=== PATIENT | male | born 1950 | race Caucasian/White ===

== ENCOUNTER 2017-02-15 11:01 | Inpatient (IN) | payer OTHER, MEDICARE ==
[~2017-02-15] VITALS: Ht 182.9 cm; Wt 88.5 kg
--- NOTE | ~2017-02-15 | EKG ---
[address] [place] [address] ELECTROCARDIOGRAM REPORT Name: TSERING GODDARD Anita Room #: 445-P ADM IN M.R.#: [id number] Admission: 02/15/17 Attend Phys: Jasen Wild MD Discharge: Date of : 52 Report #: [id number] THIS REPORT FOR: //name// [facility] ED Test Date: 2017-02-15 Test Time: 11:20:20 Pat Name: TSERING GODDARD Department: Room: [facility] Gender: M [employer] Tender: LETTY : 1950 Requested By: Candace Gimenez Order Number: [id number] MD: Walter Gomes Measurements Intervals [place] Rate: 76 P: 56 DC: 148 QRS: 41 QRSD: 108 T: 65 QT: 409 QTc: 460 Interpretive Statements Sinus rhythm RSR' in V1 or V2, right VCD No previous ECG available for comparison Electronically Signed On 02-16-2017 8:47:28 CDT by Walter Gomes [email or web address] <ELECTRONICALLY SIGNED> By: Walter Gomes MD, [facility] 02/16/17 0847 1120 1120 Walter Gomes MD, [facility] /EPI
--- NOTE | ~2017-02-15 | 2DMMODE ---
[facility] [address] [place] [address] 2 D/M-MODE ECHOCARDIOGRAM Name: TSERING GODDARD Room #: 445-P [facility] IN ..#: [id number] Admission: 02/15/17 Attend Phys: Jasen Wild MD Discharge: Date of : 52 Date of Service: 02/16/17 1442 Report #: [id number] THIS REPORT FOR: //name// APPROVED REPORT Study performed: 02/16/2017 12:04:45 EXAM: Comprehensive 2D, Doppler, and color-flow Echocardiogram Patient Location: Bedside Room #: [facility] Status: routine Other Information Study Quality: Adequate Indications CVA/TIA Hypertension/HDD HLP. Echo Enhancing Agent Indication: Rule out Shunt Agent(s) / Amount(s) Used: Agitated Saline 7 cc 2D Dimensions RVDd: 39.14 mm LVEF(%): 55.37 (>50%) IVSd: 9.61 (7-11mm) LVOT Diam: 23.70 (18-24mm) LVDd: 51.03 mm PWd: 10.30 (7-11mm) Ascending Ao: 34.20 (22-36mm) LVDs: 36.25 (25-40mm) Aortic Root: 34.22 mm IVC: 18.00 mm Craig's LVEF: 55.37 % Volumes Left Atrial Volume (Systole) Single Plane 4CH: 48.11 mL Single Plane 2CH: 48.25 mL LA ESV Index: 27.00 mL/m2 Aortic Valve AoV Peak Dario.: 1.16 m/s AO Peak Gr.: 5.41 mmHg LVOT Max P.99 mmHg LVOT Max V: 0.87 m/s RYLEE Vmax: 3.28 cm2 Mitral Valve [facility] [place] [address] 2 D/M-MODE ECHOCARDIOGRAM Name: TSERING GODDARD Room #: 445-P [facility] IN .R.#: [id number] Admission: 02/15/17 Attend Phys: Jasen Wild MD Discharge: Date of : 52 Date of Service: 02/16/17 1442 Report #: [id number] E/A Ratio: 0.7 MV Decel. Time: 267.96 ms MV E Max Dario.: 0.50 m/s MV A Dario.: 0.75 m/s MV PHT: 77.71 ms IVRT: 133.79 ms Pulmonary Valve PV Peak Dario.: 0.79 m/s PV Peak Gr.: 2.47 mmHg Pulmonary Vein P Vein S: 0.39 m/s P Vein A: 0.21 m/s P Vein D: 0.29 m/s P Vein A Dur.: 101.5 msec P Vein S/D Ratio: 1.34 Tricuspid Valve RAP Estimate: 5.00 mmHg Left Ventricle The left ventricle is normal size. There is normal LV segmental wall motion. There is normal left ventricular wall thickness. The left ventricular systolic function is normal. The left ventricular ejection fraction is within the normal range. LVEF is 55-60%. Grade I - abnormal relaxation pattern. Right Ventricle The right ventricle is normal size. The right ventricular systolic function is normal. Atria The left atrium size is normal. Interatrial septum is intact without evidence of ASD or PFO. The right atrium size is normal. Aortic Valve The aortic valve is calcified No aortic regurgitation is present. There is no aortic valvular stenosis. Mitral Valve The mitral valve is normal in structure. Trace mitral regurgitation. No evidence of mitral valve stenosis. Tricuspid Valve The tricuspid valve is normal in structure. Trace tricuspid regurgitation. Unable to assess PA pressure. Pulmonic Valve [facility] [address] [place] [address] 2 D/M-MODE ECHOCARDIOGRAM Name: TSERING GODDARD Room #: 445-P [facility]#: [id number] Admission: 02/15/17 Attend Phys: Jasen Wild MD Discharge: Date of : 52 Date of Service: 02/16/17 1442 Report #: [id number] The pulmonary valve is normal in structure. There is no pulmonic valvular regurgitation. Great Vessels The aortic root is normal in size. IVC is normal in size and collapses >50% with inspiration. Pericardium There is no pericardial effusion. <Conclusion> The left ventricular systolic function is normal. There is normal LV segmental wall motion. Grade I - abnormal relaxation pattern. The aortic valve is calcified, no insufficiency or stenosis. The mitral valve is normal in structure. No mitral regurgitation. Pulmonary artery pressure could not be reliably ascertained. Interatrial septum is intact without evidence of ASD or PFO. There is no pericardial effusion. <ELECTRONICALLY SIGNED> By: Walter Gomes MD, [facility]ACC 02/16/17 144 [id number] 144 Walter Gomes MD, FACC /INF
--- NOTE | ~2017-02-15 | HC ---
[facility] [place] [address] CONSULTATION Name: TSERING GODDARD Room #: 445-P [facility] IN ..#: [id number] Admission: 02/15/17 Attend Phys: Jasen Wild MD Discharge: Date of : 52 Report #: [id number] THIS REPORT FOR: //name// CC: Jasen Voss HISTORY OF PRESENT ILLNESS: The patient is a 67-year-old white male who has a prior history of a traumatic brain injury with the subdural hematoma 01/2016. He underwent some rehabilitation therapies, was able to be discharged back home, initially utilized a walker then advanced to the point where he was not utilizing any gait aids around the apartment, but did use a quad cane out in the community. His works during the day. He was doing quite well and then he started having the sudden onset of recurrent falls. He was noted to have multiple falls and have slower speech. He was admitted, noted to have an encephalopathy. He has right-sided weakness, rhabdomyolysis, acute renal insufficiency. He has been hydrated with improvement in his creatinine from 1.7 to 1.2. We are seeing him in rehabilitation medicine consultation. PAST MEDICAL HISTORY: Includes the prior traumatic brain injury from 2015, was noted to have had a closed skull fracture with hematoma. MEDICATIONS: Please see the full medication listing. ALLERGIES: No known drug allergies. HABITS: Noted to be a current every day smoker, 1-2 packs per day for 50 pack years. Alcohol: Past use, quit last January 2016. REVIEW OF SYSTEMS: Did not offer any current complaints of chest pain, shortness of breath or abdominal discomfort. PHYSICAL EXAMINATION: GENERAL: A 67-year-old white male lying in bed, was in no distress. NEUROLOGIC: He has some obvious dysarthria. He does follow basic 1 step commands, although there is latency to his responses. Appears to have a depressed right nasolabial fold. EXTREMITIES: He has right upper extremity weakness, a grade 3+/5, right lower extremity is a grade 4-. He appears to have some decreased coordination of that right upper extremity. Left upper and left lower extremity are more of a grade 4 to 4-/5. DTRs are grade trace to 1. He is min assist with sit to stand. He ambulated 150 feet mod assist with a front-wheeled walker, some ataxia. He was noted to have some mild to moderate deficits with cognition and safety per OT. MRI did show encephalomalacia, bilateral posterior frontoparietal regions, right frontal with evidence of old basal ganglia lacunar infarcts. ASSESSMENT: A 67-year-old white male with the following problem list: 1[place] [address] CONSULTATION Name: TSERING GODDARD Anita Room #: 445-P [facility] IN M.R.#: [id number] Admission: 02/15/17 Attend Phys: Jasen Wild MD Discharge: Date of : 52 Report #: [id number] 2. Right-sided weakness. 3. Multiple falls. 4. Rhabdomyolysis. 5. Acute renal insufficiency. 6. Prior traumatic brain injury with subdural hematoma 01/2016. PLAN: The patient to set on returning directly back home. I am uncertain if he has the safety and is at a functional level to do this as his works. He is hoping to go home with some home healthcare. May need to see if family can be there with him more initially. It is difficult to assess what his current function is versus his premorbid status. We will follow along with you regarding his rehabilitation therapy needs and be glad to assist as indicated. We may need to have the come in and assess how he is doing functionally. By: 1413 1449 Jignesh Hernandez MD /nt
[~2017-02-15 11:01] MED LIST: ATORVASTATIN CA40 MG PO; PRADAXA75 MG PO; TOPROL XL25 MG PO
[2017-02-15 11:02] VITALS: BP 85/57
[2017-02-15 11:48] LABS: HEMATOCRIT 35.7 % (42.0-52.0); HEMOGLOBIN 12.6 gm/dL (14.0-18.0); MCH 31.7 pg (26.0-34.0); MCHC 35.2 g/dL (28.0-37.0); PLATELET COUNT 141 thou/uL (150-400); RBC 3.96 mil/uL (4.50-6.00); RDW 13.5 % (10.5-14.5)
[2017-02-15 11:49] LABS: MANUAL DIFF YES
[2017-02-15 11:55] LABS: ANION GAP 9 mmol/L (7-16); BUN 38 mg/dL (7-18); CALCIUM 8.5 mg/dL (8.5-10.1); CHLORIDE 101 mmol/L (98-107); CO2 25 mmol/L (21-32); CREATININE 1.7 mg/dL (0.7-1.3); GLUCOSE 141 mg/dL (74-106); POTASSIUM 3.1 mmol/L (3.5-5.1); SODIUM 135 mmol/L (136-145)
[2017-02-15 11:58] LABS: PROTIME 10.6 Seconds (9.3-11.4)
[2017-02-15 12:12] LABS: ABSOLUTE NEUTROPHILS 6.3 thou/uL (1.4-8.2); TOTAL CELL COUNT 100
[2017-02-15 12:14] LABS: ALBUMIN 3.2 g/dL (3.4-5.0); ALKALINE PHOSPHATASE 116 U/L (46-116); SGOT 199 U/L (15-37); SGPT 65 U/L (30-65); TOTAL BILIRUBIN 1.2 mg/dL (<0.1-1.0); TOTAL PROTEIN 7.1 g/dL (6.4-8.2); TROPONIN-I < 0.04 ng/mL (<0.04-0.07)
[2017-02-15 12:59] LABS: URINE BILIRUBIN NEGATIVE (Negative); URINE BLOOD 1+ (Negative); URINE COLOR YELLOW; URINE GLUCOSE-RANDOM* NEGATIVE (Negative); URINE KETONES NEGATIVE (Negative); URINE NITRITE NEGATIVE (Negative); URINE PROTEIN (DIPSTICK) 1+ (Negative); URINE UROBILINOGEN 0.2 E.U./dl (0.2-1.0)
[2017-02-15 13:07] LABS: BACTERIA 1-9 Few /HPF (None Seen); SQUAMOUS None Seen /LPF (0-3); URINE RBC 0-2 Rare /HPF (0-2); URINE WBC 0-5 Rare /HPF (0-5)
[2017-02-15 13:08] LABS: CASTS None Seen /LPF (None Seen); CRYSTALS None Seen /LPF (None Seen)
[2017-02-15 13:44] VITALS: BP 120/62
[2017-02-15 13:57] VITALS: BP 136/67
[2017-02-15 14:25] VITALS: BP 118/69
[2017-02-15 16:43] LABS: CHOLESTEROL 153 mg/dL (<200); HDL CHOLESTEROL 37 mg/dL (>40); LDL CHOLESTEROL 92 mg/dL (<100); TC:HDL 4.1 Ratio (Not establshd); TRIGLYCERIDE 124 mg/dL (<150); VLDL 25 mg/dL (<40)
[2017-02-15 17:37] LABS: FOLIC ACID 17.3 ng/mL (8.6-58.9); TSH 1.423 uIU/mL (0.358-3.740)
[2017-02-15 18:03] LABS: MAGNESIUM 2.2 mg/dL (1.8-2.4)
[2017-02-15 20:01] VITALS: BP 120/55
[2017-02-16 00:52] LABS: HEMATOCRIT 31.1 % (42.0-52.0); MCH 32.1 pg (26.0-34.0); MCHC 35.4 g/dL (28.0-37.0); MCV 90.7 fL (80.0-100.0); RBC 3.43 mil/uL (4.50-6.00); RDW 13.6 % (10.5-14.5); WBC 5.4 thou/uL (4.0-11.0)
[2017-02-16 01:05] LABS: POTASSIUM 3.5 mmol/L (3.5-5.1)
[2017-02-16 03:07] LABS: FREE T4 1.32 ng/dL (0.82-1.77); PROLACTIN 19.1 ng/mL (4.0-15.2)
[2017-02-16 05:11] LABS: GLYCOHEMOGLOBIN (HGB A1C) 5.4 % (4.8-5.6)
[2017-02-16 05:58] VITALS: BP 127/68
[2017-02-16 08:45] VITALS: BP 133/71
[2017-02-16 12:01] LABS: CALCIUM 7.9 mg/dL (8.5-10.1); CREATININE 1.2 mg/dL (0.7-1.3); POTASSIUM 3.9 mmol/L (3.5-5.1)
[2017-02-16 16:04] VITALS: BP 151/74
[2017-02-16 19:48] VITALS: BP 134/67
[2017-02-17 05:03] VITALS: BP 142/63
[2017-02-17 06:27] LABS: HEMATOCRIT 29.6 % (42.0-52.0); HEMOGLOBIN 10.2 gm/dL (14.0-18.0); MCH 31.4 pg (26.0-34.0); MCHC 34.3 g/dL (28.0-37.0); MCV 91.7 fL (80.0-100.0); RBC 3.23 mil/uL (4.50-6.00); RDW 13.2 % (10.5-14.5); WBC 4.9 thou/uL (4.0-11.0)
[2017-02-17 06:52] LABS: CALCIUM 7.8 mg/dL (8.5-10.1); MAGNESIUM 1.7 mg/dL (1.8-2.4); POTASSIUM 3.5 mmol/L (3.5-5.1)
[2017-02-17 08:01] VITALS: BP 139/73
[2017-02-17] MEDS ORDERED: NICOTINE TRANSD21 M1 TRANSDERM (12:55)
[2017-02-17] MEDS ORDERED: ASPIR 8181 MG PO (12:55)
[2017-02-17] MEDS ORDERED: HYDROCODONE-AP1 EAC6 PO (12:56)
[2017-02-17 14:07] VITALS: BP 139/73
[2017-02-18 12:11] LABS: ALPHA TOCOPHEROL 8.1 mg/L (5.3-17.5)
== END 2017-02-17 15:03 | DRG 682 ==
LOC: ER 11:01 → EROBS 13:29 → 4S 13:29
PROVIDERS: Hospitalist; Nurse Practitioner Acute Care; Physician Assistant; Psychiatry & Neurology Neurology
DX: N17.0 Acute kidney failure with tubular necrosis (principal); G93.40 Encephalopathy, unspecified; M62.82 Rhabdomyolysis; N39.0 Urinary tract infection, site not specified; R47.01 Aphasia; I10 Essential (primary) hypertension; E78.5 Hyperlipidemia, unspecified; E87.6 Hypokalemia; R29.6 Repeated falls; F17.210 Nicotine dependence, cigarettes, uncomplicated; Z87.820 Personal history of traumatic brain injury; Z87.81 Personal history of (healed) traumatic fracture; Z79.899 Other long term (current) drug therapy
CPT/HCPCS: 10100

== ENCOUNTER 2017-02-17 10:52 | Inpatient (IN) | payer OTHER, MEDICARE ==
[~2017-02-17] VITALS: Ht 182.9 cm; Wt 82.1 kg
--- NOTE | ~2017-02-17 | PLAN ---
[facility] [place] [place] [address] REHAB UNIT PLAN OF CARE Name: TSERING GODDARD Room #: 504-2 ADM IN M.R.#: [id number] Admission: 02/17/17 Attend Phys: Jignesh Hernandez MD Discharge: Date of : 52 Report #: [id number] THIS REPORT FOR: //name// CC: Jignesh Voss DATE OF SERVICE: 02/19/2017 The patient is seen back today in followup. He is in no distress. Last recorded temperature 98.7, pulse 93, respirations 20, blood pressure 96/63. The patient is alert. No focal calf swelling. Transfers are max assist. Gait is max assist 10 feet in the parallel bars. He is max assist x 2 for stairs. In occupational therapy, upper body dressing is mod assist with lower extremity dressing dependent. In speech therapy, he has functional comprehension. ASSESSMENT: 1. Encephalopathy. 2. Late effect cerebrovascular accident. 3. Multiple prior strokes. 4. Multiple falls. 5. Rhabdomyolysis. 6. Tobaccoism. 7. Acute renal insufficiency with improvement. 8. Prior traumatic brain injury with subdural hematomas on 01/31/2017. PLAN: The overall plan of care is based on the preadmission screen, post-admission physician evaluation and information garnered from therapy assessments. 1. Estimated length of stay is probably at least 2 weeks and likely longer as he is quite low level. 2. Medical prognosis is reasonably good. 3. Anticipated interventions include the interdisciplinary acute inpatient rehabilitation program with PT, OT. Speech therapy is currently involved, although we may be able to taper that. Rehab nursing is assisting regarding medication management, skin care prophylaxis, bowel and bladder issues and nursing education. The lead consultant physicians are continuing to follow. 4. Anticipated functional outcomes would be for the patient to become modified independent with mobility, transfers, gait and ADLs at the walker level. 5. Discharge destination is back home with his . 6. Expected therapy by discipline includes PT and OT 1-1/2 hours per day each five days a week throughout the duration of the acute inpatient rehabilitation stay. He is currently getting some speech therapy, but I would anticipate that that would taper. The main issue is that he will receive 3 hours of therapy, [address] [address] REHAB UNIT PLAN OF CARE Name: TSERING GODDARD Room #: 504-2 [facility] IN [facility]#: [id number] Admission: 02/17/17 Attend Phys: Jignesh Hernandez MD Discharge: Date of : 52 Report #: [id number] PT, OT and speech per day, 5 days per week throughout the duration of the acute inpatient rehabilitation stay. <ELECTRONICALLY SIGNED> By: Jignesh Hernandez MD 02/25/17 1350 0952 1017 Jignesh Hernandez MD /nt
--- NOTE | ~2017-02-17 | H ---
[facility] [place] [address] HISTORY AND PHYSICAL Name: TSERING GODDARD Room #: 504-2 ADM IN M.R.#: [id number] Admission: 02/17/17 Attend Phys: Jignesh Hernandez MD Discharge: Date of : 52 Report #: [id number] THIS REPORT FOR: //name// CC: Jignesh Voss DATE OF SERVICE: 02/17/2017 HISTORY OF PRESENT ILLNESS: The patient is a 67-year-old white male who has a history dating back to a traumatic brain injury with a subdural hematoma 01/2016. He underwent some rehabilitation therapies, was able to be discharged back home initially utilizing a walker and then advancing to the point where he was not utilizing any gait aids around the apartment, but did use the quad cane out in the community. His works during the day. He was doing quite well and then he started having the sudden onset of recurrent falls. He was noted to have multiple falls and had slower speech. He is admitted, noted to have encephalopathy with right-sided weakness, rhabdomyolysis, acute renal insufficiency. He was hydrated with improvement in his creatinine from 1.7 to 1.2. He was noted to have significant functional deficits with a decline from his premorbid level and has been admitted for an acute in-hospital inpatient rehabilitation stay. PAST MEDICAL HISTORY: Includes the prior traumatic brain injury from 2015. He was noted to have a close skull fracture with hematoma. MEDICATIONS: Please see the full medication listing. ALLERGIES: No known drug allergies. HABITS: Noted to be a current every day smoker, 1-2 packs per day for 50 years. Alcohol past usage, quit last January 2016. REVIEW OF SYSTEMS: No current complaints of chest pain, shortness of breath or abdominal discomfort. PHYSICAL EXAMINATION: GENERAL: A 67-year-old white male, in no obvious distress. VITAL SIGNS: Last recorded temperature 98.6, pulse 54, respirations 18, blood pressure 127/92. He does have obvious dysarthria. He is able to follow basic 1 step commands with some latency to his responses. He has a depressed right nasolabial fold. CHEST: Sounded clear. CARDIOVASCULAR: Regular rate and rhythm. ABDOMEN: Bowel sounds positive, nontender. GENITOURINARY AND RECTAL: Deferred. EXTREMITIES: He has the right upper extremity weakness grade 3+/5, right lower [facility] [address] [place] [address] HISTORY AND PHYSICAL Name: TSERING GODDARD Room #: 504-2 ADM IN [facility]#: [id number] Admission: 02/17/17 Attend Phys: Jignesh Hernandez MD Discharge: Date of : 52 Report #: [id number] extremity is 4-/5. He has decreased coordination of the right upper extremity. Left upper and left lower extremity are grade 4 to 4-. DTRs are trace to 1. He does demonstrate ataxia when getting up. He has min assist for transfers, gait is actually mod assist. Speech therapy is noted mild to moderate cognitive deficits with concern regarding safety and judgment. ASSESSMENT: 1. Encephalopathy. 2. Right-sided weakness. 3. Multiple falls. 4. Rhabdomyolysis. 5. Acute renal insufficiency with improvement. Last creatinine was down to 1.0 from a high of 1.7. 6. Prior traumatic brain injury with subdural hematoma in 01/2016. PLAN: The patient is admitted for acute in-hospital inpatient rehabilitation. From a post-admission physician evaluation perspective, there are no relevant changes since the preadmission screening. Please see the above review of prior and current medical and functional conditions and comorbidities. Please see the patient's prior and current functional status. As far as risk of complications, he does have the above noted comorbidities. Initial plan of care involves the interdisciplinary acute inpatient rehabilitation program with the goal of maximizing the patient's functional independence as well as his overall mobility, ADLs and cognition and safety, so that he can return back to the home setting. Prognosis is reasonably good with estimated length of stay probably at least 10 days to 2 weeks. Potential barriers would include his multiple medical comorbidities and decreased functional status. The patient meets diagnostic criteria for an acute in-hospital inpatient rehabilitation stay. He meets medical necessity criteria. He does have the tolerance for an acute inpatient rehabilitation stay and has appropriate discharge goals back to the home setting. <ELECTRONICALLY SIGNED> By: Jignesh Hernandez MD 02/25/17 1350 1616 1645 Jignesh Hernandez MD /nt
--- NOTE | ~2017-02-17 | HC ---
[facility] [address] CONSULTATION Name: TSERING GODDARD Room #: 504-2 ADM IN M.R.#: [id number] Admission: 02/17/17 Attend Phys: Jignesh Hernandez MD Discharge: Date of : 52 Report #: [id number] THIS REPORT FOR: //name// CC: Jignesh Voss DATE OF SERVICE: 02/21/2017 NEUROBEHAVIORAL STATUS EXAM ATTENDING PHYSICIAN: Jignesh Hernandez M.D. PREKINDERGARTEN TEACHER: Den Rangel, PhD CLINICAL PRESENTATION: The patient is a 67-year-old male admitted to the [facility] Unit for comprehensive inpatient rehabilitation program to improve functional mobility, activities of daily living and self-care and mental status secondary to deficits from encephalopathy. His admitting assessment includes right-sided weakness, multiple falls, rhabdomyolysis, acute renal insufficiency and a prior traumatic brain injury with subdural hematoma in January 2016. The patient is reported to have been at home with his prior to this most recent medical event. He was managing fairly well until a sudden onset of recurrent falls. The patient had a MRI of the head on admission. Extensive chronic changes were identified that include prominent regions of encephalomalacia in the posterior frontoparietal regions bilaterally and in the right frontal lobe, most compatible with chronic remote ischemic infarction, bilateral chronic remote basal ganglia lacunar infarcts and smaller focus of encephalomalacia in the left posterior medial occipital lobe. A complete description of his medical condition and history along with medications can be found in his medical record. Neuropsychological consultation was requested to provide assistance in the assessment of cognitive and emotional status and to provide recommendations and services. As indicated, he was living with his in their home prior to this admission. The patient has 2 stepchildren that are living. One stepchild from brain cancer about 2 years ago. This is his second marriage. The patient is a high school graduate. 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 It should be noted that alcohol was described as involved in the fall in January 2016. TECHNIQUES UTILIZED: Clinical interview, review of medical records, staff consultation and behavioral observation, mini mental status exam 2 standard version, calibrated ideational fluency assessment (letter and category fluency), [address] [address] CONSULTATION Name: TSERING GODDARD Room #: 504-2 [facility] IN ..#: [id number] Admission: 02/17/17 Attend Phys: Jignesh Hernandez MD Discharge: Date of : 52 Report #: [id number] and brief abstract reasoning test. EXAMINATION FINDINGS: The patient was alert and cooperative with the assessment. He accurately described the events leading to this most recent admission. The patient was tangential and verbose during the assessment. He described a history of alcohol abuse. However, he does not report current consumption of alcohol. It should be also noted that he continues to smoke one pack per day inspite of his cerebrovascular disease. The patient appears to dismiss recommendations to discontinue tobacco. He does not describe auditory or visual hallucinations. There is no evidence of aphasia. There is no evidence of thought disorder. He denies subjective anxiety or depression. The patient has decreased insight into cognitive functioning, although he does recognize balance is his primary concern. During the assessment, he presents with upper right hemiballistic movement of the right arm. His right arm is described as nonfunctional. His performance on the mini mental status exam 2 brief version is within normal limits with a raw score of 15 of 16. However, deficits are suggested in his performance on the MMSE 2 standard version with a raw score 25 of 30 and T score of 41. The patient was 2/5 for serial 7's. He was unable to copy a simple geometric design because of the hemiballistic movement of the right arm. His performance in letter fluency was extremely low with a raw score of 11, T score of 26 and percentile rank of 1. Category fluency was extremely low with a raw score of 24, T score of 24 and percentile rank of less than 1. Overall, total fluency was extremely low with a T score of 27 and percentile rank of 1. Deficits in verbal fluency are often seen with executive dysfunction. Diminished thought organization is likely to impact planning, problem solving as well as contribute to intermittent impulsivity. Abstract verbal reasoning was within normal limits with a raw score of 8/8. DIAGNOSTIC IMPRESSION: Major neurocognitive disorder (dementia), due to vascular disease and residual deficits from traumatic brain injury, with decreased insight, extent to be determined, likely in the moderate range. RECOMMENDATIONS: The patient is presenting with deficits that will require 24-hour care to the extent of improved structure and supervision in order to maintain safety. Decreased insight into areas of deficit places him at increased safety risk. He will need assistance in the management of his medication and in the ability to follow directions and instruction to maintain a safe independent lifestyle. [facility] [address] [place] [address] CONSULTATION Name: TSERING GODDARD Room #: 504-2 ADM IN M.R.#: [id number] Admission: 02/17/17 Attend Phys: Jignesh Hernandez MD Discharge: Date of : 51 Report #: [id number] He does not present with depression or anxiety. Verbally mediated functioning is well maintained. This type of presentation suggests a subcortical neurodegenerative disorder that is likely related to vascular disease. Counseling is likely to be a benefit for the patient and his to the extent that she receive adequate education in regard to areas of deficit functioning. She should also assist in discouraing him from continued tobacco abuse. can become increasingly empowered to discourage current use of unsafe behaviors such as tobacco abuse. A followup neuropsych assessment would be of benefit in approximately 6 weeks to 2 months to clarify the severity of neurocognitive deficits. Thank you very much for allowing me to provide the consultation on this patient. <ELECTRONICALLY SIGNED> By: Den Rangel, PhD 02/28/17 1622 1513 1805 Den Rangel, PhD /nt
[2017-02-17] MEDS ORDERED: ASPIR 8181 MG PO (12:55)
[2017-02-17] MEDS ORDERED: NICOTINE TRANSD21 M1 TRANSDERM (12:55)
[2017-02-17] MEDS ORDERED: HYDROCODONE-AP1 EAC6 PO (12:56)
[2017-02-17 15:42] VITALS: BP 127/92
[2017-02-17 19:52] VITALS: BP 145/76
[2017-02-18 06:04] LABS: HEMOGLOBIN 10.7 gm/dL (14.0-18.0); MCH 32.2 pg (26.0-34.0); MCHC 35.5 g/dL (28.0-37.0); MCV 90.7 fL (80.0-100.0); RBC 3.31 mil/uL (4.50-6.00); RDW 13.2 % (10.5-14.5)
[2017-02-18 06:07] VITALS: BP 154/86
[2017-02-18 06:24] LABS: CALCIUM 7.9 mg/dL (8.5-10.1); MAGNESIUM 1.6 mg/dL (1.8-2.4); POTASSIUM 3.5 mmol/L (3.5-5.1)
[2017-02-18 16:00] VITALS: BP 141/76
[2017-02-19 06:00] VITALS: BP 152/85
[2017-02-19 15:30] VITALS: BP 130/79
[2017-02-20 06:15] VITALS: BP 143/88
[2017-02-20 16:00] VITALS: BP 144/78
[2017-02-21 03:39] VITALS: BP 148/74
[2017-02-21 16:09] VITALS: BP 143/74
[2017-02-22 06:00] VITALS: BP 144/75
[2017-02-22 16:00] VITALS: BP 145/79
[2017-02-23 06:35] VITALS: BP 130/58
[2017-02-23 06:35] LABS: ABSOLUTE NEUTROPHILS 3.4 thou/uL (1.4-8.2); BASOPHILS 0.7 % (0.0-2.0); EOSINOPHILS 4.2 % (0.0-3.0); HEMATOCRIT 32.2 % (42.0-52.0); HEMOGLOBIN 11.2 gm/dL (14.0-18.0); MCHC 34.8 g/dL (28.0-37.0); MONOCYTES 7.3 % (1.0-8.0); PLATELET COUNT 219 thou/uL (150-400); POLYS 61.8 % (36.0-66.0); RDW 13.6 % (10.5-14.5); WBC 5.5 thou/uL (4.0-11.0)
[2017-02-23 06:37] LABS: MANUAL DIFF NO
[2017-02-23 06:41] LABS: CALCIUM 8.5 mg/dL (8.5-10.1); CREATININE 1.1 mg/dL (0.7-1.3)
[2017-02-23 15:07] LABS: c-ANCA <1:20 titer (Neg:<1:20); p-ANCA <1:20 titer (Neg:<1:20)
[2017-02-23 15:30] VITALS: BP 126/77
[2017-02-24 05:50] VITALS: BP 134/85
[2017-02-24 16:09] VITALS: BP 127/70
[2017-02-25 08:00] VITALS: BP 141/77
[2017-02-25 20:33] VITALS: BP 152/66
[2017-02-26 16:22] VITALS: BP 117/72
[2017-02-27 03:27] VITALS: BP 139/68
[2017-02-27 16:00] VITALS: BP 110/58
[2017-02-28 05:08] VITALS: BP 117/66
[2017-03-01 08:00] VITALS: BP 99/62
[2017-03-02 07:46] LABS: ABSOLUTE NEUTROPHILS 1.8 thou/uL (1.4-8.2); BASOPHILS 1.1 % (0.0-2.0); EOSINOPHILS 4.6 % (0.0-3.0); HEMATOCRIT 34.7 % (42.0-52.0); HEMOGLOBIN 11.7 gm/dL (14.0-18.0); LYMPHOCYTES 33.9 % (24.0-44.0); MCH 31.8 pg (26.0-34.0); MCHC 33.7 g/dL (28.0-37.0); MCV 94.3 fL (80.0-100.0); PLATELET COUNT 142 thou/uL (150-400); POLYS 50.4 % (36.0-66.0); RBC 3.68 mil/uL (4.50-6.00); RDW 13.4 % (10.5-14.5); WBC 3.7 thou/uL (4.0-11.0)
[2017-03-02 07:57] LABS: CALCIUM 8.3 mg/dL (8.5-10.1); CREATININE 1.3 mg/dL (0.7-1.3); MAGNESIUM 2.2 mg/dL (1.8-2.4); POTASSIUM 4.3 mmol/L (3.5-5.1)
[2017-03-02 08:00] VITALS: BP 118/73
[2017-03-02 08:19] LABS: MANUAL DIFF NO
[2017-03-03 22:43] VITALS: BP 135/94
[2017-03-04] MEDS ORDERED: VITAMIN B-12500 MCG PO (11:17)
[2017-03-04] MEDS ORDERED: CALCIUM 500 +1 EAC5 PO (11:17)
[2017-03-04] MEDS ORDERED: LIORESAL 10 MG10 MG PO (11:17)
[2017-03-04] MEDS ORDERED: LISINOPRIL2.5 MG PO (11:17)
[2017-03-04] MEDS ORDERED: PROTONIX40 M1 PO (11:17)
[2017-03-04] MEDS ORDERED: MIRALAX17 GM PO (11:17)
[2017-03-04 12:24] VITALS: BP 135/94
[2017-03-05 08:27] VITALS: BP 132/73
[2017-03-05 08:51] VITALS: BP 135/94
[2017-03-05 11:48] VITALS: BP 135/94
[2017-03-05 12:45] VITALS: BP 135/94
== END 2017-03-05 14:05 | disposition home health service (06) | DRG 71 ==
PROVIDERS: Hospitalist; Nurse Practitioner; Physical Medicine & Rehabilitation
DX: G93.40 Encephalopathy, unspecified (principal); M62.82 Rhabdomyolysis; N17.9 Acute kidney failure, unspecified; I69.351 Hemiplegia and hemiparesis following cerebral infarction affecting right dominant side; F01.50 Vascular dementia, unspecified severity, without behavioral disturbance, psychotic disturbance, mood disturbance, and anxiety; F17.210 Nicotine dependence, cigarettes, uncomplicated; E83.51 Hypocalcemia; E83.42 Hypomagnesemia; R53.81 Other malaise; I95.9 Hypotension, unspecified; R25.2 Cramp and spasm; K59.00 Constipation, unspecified; Z87.820 Personal history of traumatic brain injury; Z86.718 Personal history of other venous thrombosis and embolism
CPT/HCPCS: 10092; 10112

== ENCOUNTER 2017-05-05 22:13 | Emergency (ER) | payer OTHER, MEDICARE ==
[~2017-05-05] VITALS: Ht 182.9 cm; Wt 77.1 kg
[~2017-05-05 22:13] MED LIST changes: +ASPIR 8181 MG PO; +CALCIUM 500 +1 EAC5 PO; +HYDROCODONE-AP1 EAC6 PO; +LIORESAL 10 MG10 MG PO; +LISINOPRIL2.5 MG PO; +MIRALAX17 GM PO; +NICOTINE TRANSD21 M1 TRANSDERM; +PROTONIX40 M1 PO; +VITAMIN B-12500 MCG PO
== END 2017-05-06 00:15 | disposition home or self-care (01) ==
LOC: ER 22:13
DX: S41.112A Laceration without foreign body of left upper arm, initial encounter (principal); F17.210 Nicotine dependence, cigarettes, uncomplicated; I71.4 Abdominal aortic aneurysm, without rupture; Z90.89 Acquired absence of other organs; Z86.73 Personal history of transient ischemic attack (TIA), and cerebral infarction without residual deficits; W01.110A Fall on same level from slipping, tripping and stumbling with subsequent striking against sharp glass, initial encounter; Y93.89 Activity, other specified; Y92.89 Other specified places as the place of occurrence of the external cause; Y99.8 Other external cause status

== ENCOUNTER 2018-08-28 13:53 | Inpatient (IN) | payer OTHER, MEDICARE ==
[~2018-08-28] VITALS: Ht 182.9 cm; Wt 78.5 kg
[2018-08-28 13:54] VITALS: BP 154/93
[2018-08-28 14:49] LABS: ABSOLUTE NEUTROPHILS 4.4 thou/uL (1.4-8.2); BASOPHILS 0.6 % (0.0-2.0); EOSINOPHILS 1.3 % (0.0-3.0); HEMATOCRIT 37.3 % (42.0-52.0); MCH 31.9 pg (26.0-34.0); MCV 91.3 fL (80.0-100.0); MONOCYTES 5.8 % (1.0-8.0); PLATELET COUNT 142 thou/uL (150-400); POLYS 79.3 % (36.0-66.0); RBC 4.08 mil/uL (4.50-6.00); RDW 12.7 % (10.5-14.5); WBC 5.5 thou/uL (4.0-11.0)
[2018-08-28 14:52] LABS: CALCIUM 8.8 mg/dL (8.5-10.1); CREATININE 1.3 mg/dL (0.7-1.3); POTASSIUM 4.1 mmol/L (3.5-5.1)
[2018-08-28 15:06] LABS: ALBUMIN 3.5 g/dL (3.4-5.0); TOTAL BILIRUBIN 0.8 mg/dL (<0.1-1.0); TOTAL PROTEIN 7.3 g/dL (6.4-8.2)
[2018-08-28 16:06] VITALS: BP 158/82
[2018-08-28 16:39] VITALS: BP 168/85
[2018-08-28 17:10] VITALS: BP 152/83
--- NOTE | 2018-08-28 18:30 | NUR ---
PT RECEIVED FROM THE ER AT 1710 TO RM 428 ALERT AND IN NO ACUTE DISTRESS. PT ASSESSED AND ADMITTED TO THE UNIT. NOTIFIED DR. CAVANAUGH OF PT ADMISSION. DIET ORDER ENTERED AND PT ATE AND FED HIMSELF. REHAB CONSULT CALLED TO [facility]. PT DENIES AND CHRONIC PAIN BUT WANTING TO GET BACK BEING ABLE TO WALK AGAIN.
[2018-08-28 19:35] VITALS: BP 140/71
[2018-08-28 21:46] LABS: URINE BILIRUBIN NEGATIVE (Negative); URINE BLOOD 3+ (Negative); URINE CLARITY CLEAR; URINE COLOR YELLOW; URINE GLUCOSE-RANDOM* NEGATIVE (Negative); URINE KETONES TRACE (Negative); URINE NITRITE-REFLEX POSITIVE (Negative); URINE PROTEIN (DIPSTICK) TRACE (Negative); URINE SPECIFIC GRAVITY >= 1.030 (1.005-1.035); URINE UROBILINOGEN 0.2 E.U./dl (0.2-1.0)
[2018-08-28 21:47] LABS: URINE LEUKOCYTES-REFLEX 1+ (Negative)
[2018-08-28 22:11] LABS: BACTERIA-REFLEX >30 Many /HPF (None Seen); SQUAMOUS 0-3 Few /LPF (0-3); URINE RBC 3-10 Few /HPF (0-2)
[2018-08-28 22:12] LABS: CASTS None Seen /LPF (None Seen); MUCUS 0-3 Light strn/LPF (None Seen)
[2018-08-28 22:13] LABS: CRYSTALS None Seen /LPF (None Seen)
--- NOTE | 2018-08-29 01:16 | NUR ---
ASSESSMENT AND VSS. IN BED, AWAKE AND OREINTED TO SELF AND HOSPITAL UA COLLECTED AND RUN. SALINE LOCKED IV IN R AC. REGULAR DIET. DENIES HOME MEDS. DENIES PAIN.
[2018-08-29 04:21] VITALS: BP 128/68
--- NOTE | 2018-08-29 05:50 | NUR ---
ADMINISTERED NEW MEDS. WEARING BRIEF IN BED BY PATIENTS REQUEST.
[2018-08-29 06:08] LABS: MCH 32.4 pg (26.0-34.0); MCHC 35.2 g/dL (28.0-37.0); MCV 91.8 fL (80.0-100.0); RBC 3.7 mil/uL (4.50-6.00); RDW 12.9 % (10.5-14.5); WBC 4.6 thou/uL (4.0-11.0)
[2018-08-29 06:24] LABS: CALCIUM 8.3 mg/dL (8.5-10.1); CREATININE 1.3 mg/dL (0.7-1.3); POTASSIUM 3.8 mmol/L (3.5-5.1)
[2018-08-29 08:24] VITALS: BP 124/76; BP 133/71
--- NOTE | 2018-08-29 10:41 | NUR ---
ASSESMENT COMPLETED. VSS. A/O. IRRITABLE. DENIES PAIN. NO NOTED SOA. NO NV. C/O NOT BEING ABLE TO SLEEP WELL OVERNIGHT. PT RESTING IN BED NO CONCERNS VOICED. WILL CONT. TO MONITOR.
--- NOTE | 2018-08-29 14:04 | NUR ---
ASSESSMENT-PT LIVES IN AN APT WITH HIS NORMALLY. HAS GONE TO TEN SLEEP FOR A COUPLE OF WEEKS. PT SAYS HE USUALLY IS ABLE TO GET AROUND THE APT ON HIS OWN AND GOES DOWN 1 STEP OUT TO THE [place] TO SMOKE. PT HAS A DTR IN [facility] THAT CHECKS ON THEM OCCASIONALLY. 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 WORKS FULL-TIME. HE HAS HAD HH THRU [facility] IN THE PAST. PT HAS A SON IN [place]. PT HAS A SHOWER CHAIR AND STICK ON [employer]. DISCUSSED POSSIBLE NEED FOR ADDITIONAL REHAB BEFORE GOING HOME. FOLLOWING TO ASSIST WITH DC PLANNING.
[2018-08-29 16:31] VITALS: BP 123/60
[2018-08-29 20:50] VITALS: BP 138/72
--- NOTE | 2018-08-30 03:19 | NUR ---
A/O, patient became nervous when having difficulty explaining things but calm and pleasant otherwise. vss, afebrile. Soa during talking with anxiety, which lasted about 3 minutes, oxygen sat. above 93%. bed rest. will keep monitoring.
[2018-08-30 05:38] VITALS: BP 137/69
[2018-08-30 08:07] VITALS: BP 120/63
--- NOTE | 2018-08-30 09:46 | NUR ---
ASSUMED CARE THIS AM, SHIFT ASSESSMENT DONE, MEDS GIVEN BY STUDENT NURSE. VSS. ON SWALLOW PRECAUTIONS. WORKED WITH PHYSICAL THERAPHY, HAD A HARD TIME STANDING UP. SAT AT THE EDGE OF THE BED. WILL CONTINUE TO ASSESS AND ASSIST WITH ADLs NEEDED.
[2018-08-30 11:46] VITALS: BP 115/60
--- NOTE | 2018-08-30 14:23 | NUR ---
PLAN WILL BE FOR PT TO TRANSFER TO [facility] TODAY ROOM 512 FOR ADDITIONAL REHAB BEFORE RETURNING HOME. NOTIFIED DR WILLS OF PT'S ACCEPTANCE TO [facility]. NOTIFIED PT'S DTR RONNY OF TRANSFER TO [facility] LATER TODAY.
--- NOTE | 2018-08-30 14:40 | NUR ---
I have reviewed and concur with student documentation.
--- NOTE | 2018-08-30 14:41 | NUR ---
PATIENT ADMITTED TO THE HOSPITAL FOR INCREASED WEAKNESS WITH COMPLAINTS THROUGHOUT THE DAY OF NOT BEING ABLE TO SMOKE AND INABILITY TO USE A STRAW. PATIENT LIKES TO GULP WATER WHEN IT IS GIVEN, TRIED TO EDUCATE ABOUT THE DANGERS OF CHOKING. PATIENT ATTEMPTED TO AMBULATE WITH PHYSICAL THERAPY AND IT WAS NOT SUCCESSFUL, WILL LIKELY DO BETTER IN A DIFFERENT ENVIRONMENT.
[2018-08-30] MEDS ORDERED: ACETAMINOPHEN325 M1 PO (15:17)
[2018-08-30] MEDS ORDERED: BACLOFEN 10MG T10 MG PO (15:17)
[2018-08-30] MEDS ORDERED: LISINOPRIL2.5 MG PO (15:17)
[2018-08-30] MEDS ORDERED: CEFDINIR300 MG PO (15:17)
[2018-08-30] MEDS ORDERED: ASPIR 8181 MG PO (15:17)
[2018-08-30] MEDS ORDERED: PRADAXA75 MG PO (15:30)
[2018-08-30] MEDS ORDERED: ATORVASTATIN CA40 MG PO (15:30)
[2018-08-30] MEDS ORDERED: PROTONIX40 M4 PO (15:30)
[2018-08-30 16:07] VITALS: BP 138/68
--- NOTE | 2018-08-31 14:20 | NUR ---
I have reviewed the documentation by Elli Garcia from 08/29/18 and I concur with it. Kayla Montalvo, CCC-PAINT BRUSH MAKER
--- NOTE | 2018-09-07 13:26 | HC ---
[facility] [place] [address] CONSULTATION Name: TSERING GODDARD Room #: 428-P [facility] IN M.R.#: [id number] Admission: 08/28/18 Attend Phys: Edd Yee MD Discharge: 08/30/18 Date of : 52 Report #: [id number] THIS REPORT FOR: //name// CC: Edd Voss DATE OF SERVICE: 08/29/2018 HISTORY OF PRESENT ILLNESS: The patient is a 70-year-old white male with a prior history of multiple CVAs baseline right hemiparesis with right upper extremity flexion contracture, who noted that he had sudden severe weakness for approximately 24 hours, could not get up after a fall. He underwent CT scan that showed old CVAs posterior parietal bilateral as well as right frontal. No findings of acute hemorrhage. We are seeing him in rehabilitation medicine consultation. PAST MEDICAL HISTORY: Includes traumatic brain injury in 2015, had a closed skull fracture and hematoma. He had multiple CVAs in 02/2017, at that point they were noted to be bilateral basal ganglia. He has had an abdominal aortic aneurysm in 06/2016. There also was note of a stroke in 1994. ALLERGIES: No known drug allergies. MEDICATIONS: Please see the full medication listing. This includes vitamins, herbals, and supplements. HABITS: Current every day smoker of cigarettes, past history of alcohol use. SOCIAL HISTORY: Lives with who is currently out of town. There are a few steps into the house and then he stay on one floor. There is a daughter involved that lives in [place]. He was apparently able to "shuffle around the house" and apparently did not use a walker. works during the day. HABITS: As noted above. REVIEW OF SYSTEMS: No current complaints of chest pain, shortness of breath or abdominal discomfort. Complains of overall generalized weakness and is concerned with decreased function. He has had a prior abdominal aortic aneurysmal surgery. No bowel or bladder incontinence, fever, chills, dysuria, diarrhea or cough as noted. PHYSICAL EXAMINATION: GENERAL: A 68-year-old thin white male, in no obvious distress. VITAL SIGNS: Temperature 98.5, pulse 80, respirations 16, blood pressure 132/71. NEUROLOGIC: He is alert. He has some dysarthria, talks very slowly, but is [facility] [address] [place] [address] CONSULTATION Name: TSERING GODDARD Room #: [address] [place] [address] IN M.R.#: [id number] Admission: 08/28/18 Attend Phys: Edd Yee MD Discharge: 08/30/18 Date of : 52 Report #: [id number] able to enunciate reasonably well. He has some delayed word finding. Facies appeared symmetric. He does have chronic right upper extremity paresis grade 3+/5 with some increased spasticity. Right lower extremity 3+/5, again some increased tone. Left upper and left lower extremity were grade 3+/5. There is no focal calf swelling. No distal lower extremity edema. ASSESSMENT: A 68-year-old white male with the following problem list: 1. Acute neurologic event versus late effect cerebrovascular accident. 2. Right hemiparesis. 3. Bilateral cerebrovascular accidents in the past, posterior parietal as well as right frontal 4. Right upper extremity flexion contracture with increased tone. 5. Prior traumatic brain injury in 2016. 6. Gait instability with recent fall. PLAN: He notes he has had a gradual decline over the past several months and had a sudden further decrease just prior to this hospitalization. Workup is underway. Therapy evaluations are ordered and we will see what his current function. He may be a candidate for an acute in-hospital inpatient rehabilitation stay. We will be glad to follow along with you regarding his rehab therapy needs. <ELECTRONICALLY SIGNED> By: Jignesh Hernandez MD 09/07/18 1326 1125 0047 Jignesh Hernandez MD /[facility]
== END 2018-08-30 18:51 | DRG 70 ==
LOC: ER 13:53 → 4E 15:44 → EROBS 15:44 → 4E 16:55 → ENTRNSPT 08-30 18:04 → 4E 08-30 18:51
PROVIDERS: Emergency Medicine; ADMIT Internal Medicine
DX: G93.41 Metabolic encephalopathy (principal); E43 Unspecified severe protein-calorie malnutrition; N39.0 Urinary tract infection, site not specified; I69.351 Hemiplegia and hemiparesis following cerebral infarction affecting right dominant side; K21.9 Gastro-esophageal reflux disease without esophagitis; I10 Essential (primary) hypertension; F17.210 Nicotine dependence, cigarettes, uncomplicated; R25.2 Cramp and spasm; R26.9 Unspecified abnormalities of gait and mobility; R13.10 Dysphagia, unspecified; Z87.820 Personal history of traumatic brain injury; Z79.899 Other long term (current) drug therapy; Z91.81 History of falling
CPT/HCPCS: 10183; 10783

== ENCOUNTER 2018-08-30 13:54 | Inpatient (IN) | payer OTHER, MEDICARE ==
[~2018-08-30] VITALS: Ht 185.4 cm; Wt 73.0 kg
[2018-08-30] MEDS ORDERED: BACLOFEN 10MG T10 MG PO (15:17)
[2018-08-30] MEDS ORDERED: ACETAMINOPHEN325 M1 PO (15:17)
[2018-08-30] MEDS ORDERED: LISINOPRIL2.5 MG PO (15:17)
[2018-08-30] MEDS ORDERED: CEFDINIR300 MG PO (15:17)
[2018-08-30] MEDS ORDERED: ASPIR 8181 MG PO (15:17)
[2018-08-30] MEDS ORDERED: ATORVASTATIN CA40 MG PO (15:30)
[2018-08-30] MEDS ORDERED: PROTONIX40 M4 PO (15:30)
[2018-08-30] MEDS ORDERED: PRADAXA75 MG PO (15:30)
[2018-08-30 20:00] VITALS: BP 137/80
--- NOTE | 2018-08-31 04:50 | NUR ---
PATIENT STATES HE CANNOT WRITE, ALL PERMISSION FORMS REVIEWED WITH PATIENT, HE AGREED WITH CONTENT OF ALL OF THEM BUT IS UNABLE TO SIGN. CALLS FOR ASSIST WITH URINAL. PATIENT STATES HIS NUMBER ONE GOAL IS TO BE ABLE TO WALK TO THE BATHROOM BY HIMSELF
[2018-08-31 05:42] LABS: HEMATOCRIT 33.5 % (42.0-52.0); HEMOGLOBIN 11.5 gm/dL (14.0-18.0); MCH 31.6 pg (26.0-34.0); MCHC 34.3 g/dL (28.0-37.0); MCV 92.3 fL (80.0-100.0); RBC 3.63 mil/uL (4.50-6.00); WBC 4.8 thou/uL (4.0-11.0)
[2018-08-31 05:58] LABS: CALCIUM 8.5 mg/dL (8.5-10.1); CREATININE 1.3 mg/dL (0.7-1.3)
[2018-08-31 08:50] VITALS: BP 130/71
--- NOTE | 2018-08-31 09:30 | NUR ---
chart review, cm visited with pt at bedside, while he working with st, he requested to go back to bed during visit. pt preferrs going by bharath. and was going to cont to work with st. pt a & o 2-3 with confusion and forgetfulness. intro to cm, team meeting and dcp. pt reported " apartment with , 1 step to outside patio. has shower chair and grab bars, no other equip. had vna hh in past."/bharath and chart. jannie is currently out of country to [place]. will cont following as needed for dc needs.
[2018-08-31 19:41] VITALS: BP 139/66
--- NOTE | 2018-09-01 03:21 | NUR ---
assumed care at approx 1900 evening 08/31. pt lying in bed with head of bed elevated, awake and alert. pt forgetful at times. pt somewhat frustrated about nicotine and requesting to have nicotine patch put on at hs. pt refusing to be turned at times. pt does appear to be sleeping fairly soundly with hourly rounding checks. bed alarm on and call light in reach. will continue to monitor.
[2018-09-01 04:07] LABS: 25-HYDROXY TOTAL 14.8 ng/mL (30.0-100.0)
[2018-09-01 09:34] VITALS: BP 138/60
--- NOTE | 2018-09-01 18:31 | NUR ---
ASSUMED CARES AT 0700. PT ALERT AND ORIENTED*3, FORGETFUL. DENIES PAIN. VITALS REMAINED STABLE. PT CONTINUES TO HAVE RIGHT SIDED WEAKNESS/ FLACCIDITY, UP WITH 1-2 PIVOT TRANSFERS. EATING POORLY TODAY, REFUSED LUNCH, ATE 50% OF BREAKFAST AND DINNER. PT LAYING IN BED READING IN BETWEEN THERAPY, Q2H TURNS. Q1H VISUAL CHECKS. CALL LIGHT WITHIN REACH. FALL PRECAUTIONS IN PLACE
[2018-09-01 19:48] VITALS: BP 141/67
--- NOTE | 2018-09-02 02:15 | NUR ---
assumed care at approx 1900 evening 09/01. pt sitting up in bed at change of shift reading on the [employer] tablet. pt appropriate and cooperative, flat affect. urinal at bedside. pt refusing to turn in bed at times and pt will turn himself if he wants to. bed alarm on and call light in reach. will continue to monitor.
--- NOTE | 2018-09-02 10:37 | NUR ---
ASSUMED CARES AT 0700. PT AWAKE, A/O*4, APPROPRIATE AND MORE COMPLIANT TODAY THAN PREVIOUSLY NOTED. C/O BACK PAIN ( ALONG THE SPINE), 10/26, STATED THAT HE'D HAD IT FOR OVER A DECADE AND ITS ALLEVIATED BY REST/ LAYING FLAT ON THE BED. VITALS REMAINED STABLE. PT CONTINUES TO HAVE RIGHT SIDED WEAKNESS WITH FLACCIDITY OF RUE. SKIN REMAINS INTACT. UP WITH 1-2 PERSON PIVOT TRANSFERS. Q1H VISUAL CHECKS. CALL LIGHT WITHIN REACH. FALL PRECAUTIONS IN PLACE
[2018-09-02 20:00] VITALS: BP 142/69
--- NOTE | 2018-09-03 00:49 | NUR ---
PT ALERT AND ORIENTED X 4. RIGHT SIDED WEAKNESS. VOIDS PER URINAL. INCONT OF URINE AT TIMES. PT DENIES PAIN OR DISCOMFORT. BED ALARM ON FOR SAFETY. PT APPEARS TO BE SLEEPING ON HOURLY ROUNDS.
[2018-09-03 08:30] VITALS: BP 131/66
[2018-09-03 20:30] VITALS: BP 162/90
--- NOTE | 2018-09-04 04:02 | NUR ---
PT ALERT AND ORIENTED X 4. UP TO BSC WITH MAX ASSIST X 2 WITH DIFFICULTY. GRABS ON TO STAFF WHEN TRANSFERRING. HAS NOT HAD A BM SINCE 08/30. MOM GIVEN WITH NO RESULTS YET. REFUSES SUPPOSITORY. PT TAKES MEDS IN APPLESAUCE WITHOUT DIFFICULTY. PT DENIES PAIN OR DISCOMFORT. BED ALARM ON FOR SAFETY. PT CHECKED ON HOURLY ROUNDS.
[2018-09-04 08:41] VITALS: BP 115/70
--- NOTE | 2018-09-04 11:29 | NUR ---
ASSUMED CARES AT 0700. PT AWAKE, ALERT AND ORIENTED*4. DENIES PAIN. VITALS REMAINED STABLE. SKIN REMAINS INTACT. PT CONTINUES TO HAVE RIGHT SIDED WEAKNESS AND ALSO NOTED SOME LEFT SIDED WEAKNESS. UP WITH 1-2 MAX ASSIST, VERY UNSTEADY WITH TRANSFERS. REPOSITIONED Q2H. UP WITH THERAPY AND TOLERATED PARALLEL BARS WELL. Q1H VISUAL CHECKS. CALL LIGHT WITHIN REACH. FALL PRECAUTIONS IN PLACE
[2018-09-04 19:45] VITALS: BP 150/69
--- NOTE | 2018-09-05 03:28 | NUR ---
assumed care at approx 1900 evening 09/04. pt lying in bed with head of bed elevated at change of shift. pt alert and oriented with flat affect. pt with jerky movements meaghan with hands and fingers. pt voiding per urinal and assisted pt up to w/c to transfer to toilet to have bm. pt back to bed now appears to be sleeping soundly with hourly rounding checks. bed alarm on and call light in reach. will continue to monitor.
[2018-09-05 08:00] VITALS: BP 134/77
[2018-09-05 19:22] VITALS: BP 132/65
--- NOTE | 2018-09-06 02:06 | NUR ---
PT ALERT AND ORIENTED X 4. VOIDING ADEQUATE AMTS CLEAR YELLOW URINE PER URINAL. PT REPOSITIONS SELF IN BED. PT DENIES PAIN OR DISCOMFORT. BED ALARM ON FOR SAFETY. PT APPEARS TO BE SLEEPING ON HOURLY ROUNDS.
[2018-09-06 08:34] VITALS: BP 143/75
--- NOTE | 2018-09-06 10:10 | NUR ---
ASSUMED CARE AT 0700. PAITENT IS ALERT AND ORIENTED X4. PATIENT DOHERTY'S, SAMPLE DISTRIBUTOR ARE STRONG. LUNGS ARE CLEAR, ABD IS SOFT WITH BSX4. VOIDS PER URINAL. UP IN BED FOR MEALS. FALL AND SAFETY PROTOCOLS IN PLACE. DENIES ANY PAIN. CONTINUES TO PROGESS SLOWLY TOWARDS D/C GOALS. WILL CONTINUE TO MONITER.
--- NOTE | 2018-09-06 13:32 | NUR ---
team meeting, recommendation re team, possible home health ( pt, ot, st, nursing, sw and bath aid). needs 24hr care/supervision. will discuss and daughter when returns from out of country.
[2018-09-06 19:27] VITALS: BP 135/72
--- NOTE | 2018-09-07 00:21 | NUR ---
PT ALERT AND ORIENTED X 4. VOIDING SMALL AMTS CLEAR YELLOW URINE PER URINAL. PT TOOK HS MEDS IN APPLESAUCE WITHOUT DIFFICULTY. PT DENIES PAIN OR DISCOMFORT. BED ALARM ON FOR SAFETY. PT CHECKED ON HOURLY ROUNDS.
--- NOTE | 2018-09-07 08:47 | NUR ---
FAXED REFERRAL TO [facility] SPOKE WITH BENSON SHE RECEIVED REFERRAL AND WILL BE ACCEPT PT. AT DISCHARGE. ANTICIPATE DC 09/15. DCP TO FOLLOW.
[2018-09-07 09:00] VITALS: BP 113/75
--- NOTE | 2018-09-07 10:56 | NUR ---
ASSUMED CARE AT 0700. PATIENT IS ALERT AND ORIENTED X4. PATIENT DOHERTY'S. LUNGS ARE CLEAR. ABD IS SOFT WITH BSX4. UP IN W/C FOR MEALS AND THERAPY. VOIDS JESSI COLORED URINE PER URINAL. FALL AND SAFETY PROTOCOLS IN PLACE. DENIES PAIN AT THIS TIME. CONTINUES TO PROGRESS SLOWLY TOWARDS D/C GOALS. WILL CONTINUE TO MONITER.
--- NOTE | 2018-09-07 13:21 | NUR ---
I have reviewed the documentation by FRANCY RAMESH from 09/07/18 to 09/07/18 and I concur with it. TITUS WORLEY A
--- NOTE | 2018-09-07 13:26 | H ---
[facility] [place] [address] HISTORY AND PHYSICAL Name: TSERING GODDARD Room #: 512-P ADM IN M.R.#: [id number] Admission: 08/30/18 ������������������ Attend Phys: Jignesh Hernandez MD Discharge: ������������������ Date of : 52 Report #: [id number] THIS REPORT FOR: //name// CC: Jignesh Voss DATE OF SERVICE: 08/30/2018 HISTORY AND PHYSICAL/POST-ADMISSION PHYSICIAN EVALUATION HISTORY OF PRESENT ILLNESS: The patient is a 68-year-old white male with a prior history of multiple CVAs, baseline right hemiparesis with right upper extremity flexion contracture noted to have severe sudden weakness for approximately 24 hours, could not get up after a fall. He underwent CT scan that showed old CVAs posterior parietal bilateral as well as right frontal. MRI was also obtained, which showed no acute abnormalities. Age-related findings with mild cerebral and cerebellar volume loss, multiple old CVAs with surrounding gliosis. He was noted to have had a functional decline. He was noted to have a UTI. He was thought to have late effect CVA with functional decline. He has not been admitted for acute in-hospital inpatient rehabilitation. PAST MEDICAL HISTORY: Includes traumatic brain injury in 2015. He had a closed skull fracture and hematoma. History of multiple CVAs in 02/2017. At that point, there were noted to be bilateral basal ganglia. He had an abdominal aortic aneurysm 06/2016. There also was noted to be a stroke in 1994. ALLERGIES: No known drug allergies. MEDICATIONS: Please see the full medication listing. This includes vitamins, herbals, and supplements. HABITS: He was a current everyday smoker of cigarettes. Past history of alcohol use. SOCIAL HISTORY: Lives with his who is currently out of town. There are a few steps into the house and that he stays on one floor. There is a daughter involved that lives in a [place]. He was apparently able to "shuffle around the house" and apparently did not use a walker. works during the day. HABITS: As noted above. REVIEW OF SYSTEMS: No current complaints of chest pain, shortness of breath or abdominal discomfort. He does have the generalized weakness. He has no bowel or bladder incontinence. No history of fever, chills, dysuria, diarrhea. He has had a prior abdominal aortic aneurysm surgery. [address] [address] HISTORY AND PHYSICAL Name: TSERING GODDARD Room #: [address] [place] [address] IN M.R.#: [id number] Admission: 08/30/18 ������������������ Attend Phys: Jignesh Hernandez MD Discharge: ������������������ Date of : 52 Report #: [id number] PHYSICAL EXAMINATION: GENERAL: A 68-year-old white male in no obvious distress. VITAL SIGNS: Last recorded temperature 98.1, pulse 63, respirations 20, blood pressure 137/80. NEUROLOGIC: The patient is alert, talks slowly able to follow basic commands. He has delayed word finding. Facies appeared symmetric. HEENT: Otherwise appeared benign. CHEST: Sounded clear to auscultation. CARDIOVASCULAR: Regular rate and rhythm. ABDOMEN: Bowel sounds positive, nontender. GENITOURINARY AND RECTAL: Deferred. EXTREMITIES: He has chronic right upper extremity paresis grade 3+/5 with some increased spasticity. Right lower extremity 3+/5 with some increased tone. Left upper and left lower extremity were grade 3+/5. No focal calf swelling. No distal lower extremity edema. As far as his function, he has been max assist with attempted transfers. He has ataxic movements, unable to ambulate at this point in time, will have some occasional knee buckling. ASSESSMENT: 1. Right hemiparesis. 2. Late effect cerebrovascular accident. 3. Bilateral cerebrovascular accidents in the past, posterior parietal as well as right frontal. 4. Right upper extremity flexion contracture with increased tone. 5. Post-traumatic brain injury in 2016. 6. Gait instability with recent fall. 7. Noted urinary tract infection. PLAN: The patient is admitted for acute in-hospital inpatient rehabilitation. From a postadmission physician evaluation perspective, there are no relevant changes since the preadmission screening. Please see the above review of prior and current medical and functional conditions and comorbidities. Please see the patient's previous and current functional status. As far as risk of complications, he has multiple medical comorbidities as noted above. Initial plan of care involves the interdisciplinary acute inpatient rehabilitation program with goal of maximizing his functional independence, so he can hopefully return back to his prior living situation. Measurable functional goals for him would be to improve transfers and gait with the walker as well as basic ADLs and communication. Prognosis is reasonably good with estimated length of stay probably at least 2-3 weeks pending progress and potentially longer. Potential barriers would include his above noted comorbidities and his significant decreased function. The patient meets diagnostic criteria for an acute in-hospital inpatient rehabilitation stay. He meets the medical necessity criteria and we will have [facility] [address] [place] [address] HISTORY AND PHYSICAL Name: TSERING GODDARD Room #: 512-P ADM IN M.R.#: [id number] Admission: 08/30/18 ������������������ Attend Phys: Jignesh Hernandez MD Discharge: ������������������ Date of : 52 Report #: [id number] the benefits sales consultant physicians involved. He does have the tolerance for therapies and has appropriate discharge goals back to the home setting. ��������������������������������������������� <ELECTRONICALLY SIGNED> ���������������������������������������� By: Jignesh Hernandez MD ��������������������������������������������� 09/07/18 1326 0900 1003 Jignesh Hernandez MD /nt
[2018-09-07 19:30] VITALS: BP 141/62
--- NOTE | 2018-09-08 02:02 | NUR ---
assumed care at approx 1900 evening 09/07. pt sitting up in bed at change of shift resting and visiting with visitor at bedside. pt cooperative with somewhat flat affect. pt took hs meds with applesauce tolerating well. pt voiding per urinal. pt appears to be sleeping soundly with hourly rounding checks. bed alarm on and call light in reach. will continue to monitor.
--- NOTE | 2018-09-08 14:49 | NUR ---
Patient participated in community reintegration on 09/08/18 with Physical Therapy. Refer to documentation by PT.
--- NOTE | 2018-09-08 15:26 | NUR ---
Patient participated in community reintegration on 09/08/18 with PHYSICAL THERAPY. Refer to documentation by PTA. HILDA
[2018-09-08 21:17] VITALS: BP 155/81
--- NOTE | 2018-09-09 03:19 | NUR ---
ASSESSMENT: PT REMAIN ALERT AND ORIENT TIMES FOUR. DOHERTY. AMAYA HANDS AND FINGERS SEEM TO TIGHTEN UP CAUSING THE PT TO BECOME FRUSTRATED. FAMILY MEMBER WAS AT THE BEDSIDE AT THE BEGINNING OF THE SHIFT. MAX ASSIST WITH WC AND GB. PT WANTS PT TO ONLY WEAR GRIPPER SOCKS AND NO SHOES DURING THERAPY. TOLERATING PILLS GIVEN IN APPLE SAUCE. IS IN [place] AND UPON HER RETURN, PT WILL BE DC'S HOME WITH HER. NOT ABLE TO CARE FOR SELF AT HOME. SLOW PROGRESS TOWARDS DC GOALS. WILL CONTINUE TO MONITOR.
[2018-09-09 08:56] VITALS: BP 113/76
--- NOTE | 2018-09-09 19:40 | NUR ---
ASSUMED CARES AT 0700. PT AWAKE, ALERT AND ORIENTED *4, FLAT AFFECT AND WANTS TO BE LEFT ALONE. C/O LACK OF ENOUGH SLEEP LAST NOC, HOSPITALIST NOTIFIED, MELATONIN ORDERED AND ORDERS TO KEEP ROOM QUIET AND UNINTERRUPTED RECEIVED, PASSED ONTO NIGHT NOC. VITALS REMAINED STABLE. PT DENIES PAIN. UP WITH 1 PERSON MOD ASSIST, PIVOT TRANSFERS. Q1H VISUAL CHECKS. CALL LIGHT WITHIN REACH. FALL PRECAUTIONS IN PLACE
[2018-09-09 19:51] VITALS: BP 133/69
--- NOTE | 2018-09-09 23:09 | NUR ---
PT ASSESSMENT COMPLETED AND VSS. MEDS GIVEN ORDERED AND WELL TOLERATED. FALL PRECAUTIONS IN PLACE. VOIDING LARGE AMOUNT OF URINE PER URINAL. DENIES NEEDS. SLEEPING WELL. WILL CONTINUE TO MONITOR FREQUENTLY.
[2018-09-10 08:31] VITALS: BP 132/80
--- NOTE | 2018-09-10 14:10 | NUR ---
ASSUMED CARES AT 0700. UP TO BATHROOM. HAD LARGE SOFT BM THIS AM. PT AWAKE, ALERT AND ORIENTED X4, FLAT AFFECT AND WITHDRAW. FEELS LIKE SOMEONE DRUG ME LAST NIGHT. PT HAD MELATONIN LAST NIGHT. PT HAD ORDER TO KEEP ROOM QUIET AND UNINTERRUPTED RECEIVED, PASSED ONTO NIGHT NOC. VITALS REMAINED STABLE. PT DENIES PAIN. UP WITH 1 PERSON MOD ASSIST, PIVOT TRANSFERS. ELECTRIC MILKERS INSTALLER GAVE PT SHOWER THIS AM. HAD NEW SKIN TEAR WHEN TOOK SHOWER ON RIGHT HAND. OPTIFOAM APPLIED. ALSO NOTED PT HAS SMALL SORE ON COCCYX. PICTURE TAKEN, BARRIER CREAM APPLIED. ENCOURAGED PT TO TURN IN BED.OFFERED LOW AIR MATRESS PT REFUSED. WILL GIVE REPORT TO ON COMING NURSE AND WILL CONTINUE TO MONITOR. WOUND AND SKIN TEAR ADDED IN INTERVENTIONS TO CONTINUE TO MONITOR. NO WOUND CONSULT NEED AT THIS MOMENT. Q1H VISUAL CHECKS. CALL LIGHT WITHIN REACH. FALL PRECAUTIONS IN PLACE. PT FINISHED WITH THERAPY TODAY. WALKED WITH PHYSICAL THERAPIST ON [address]. FEELS TIRED NOW. RESTING IN BED. WILL CONTINUE TO MONITOR.
[2018-09-10 19:35] VITALS: BP 119/61
--- NOTE | 2018-09-10 23:47 | NUR ---
PT ASSESSMENT COMPLETED AND VSS. MEDS GIVEN ORDERED AND WELL TOLERATED. FALL PRECAUTIONS IN PLACE. PT VOIDING LARGE AMOUNT OF YELLOW URINE. BARRIER CREAM APPLIED TO COCCYX WOUND. PT REFUSED TO REMOVE HIS BRIEF AND TO BE TURNED EVEN AFTER ENCOURAGEMENT AND EDUCATION. WILL ASK DAY RN TO SPEAK WITH ABOUT THIS. WOUND CONSULT ORDERED. WILL CONTINUE TO MONITOR FREQUENTLY. SLEEPING WELL.
--- NOTE | 2018-09-11 10:29 | NUR ---
ASSUMED CARES AT 0700. PT ALERT AND ORIENTED*4. DENIES PAIN. VITALS REMAINED STABLE. PT SAT UP ON THE SIDE OF BED FOR BREAKFAST THIS AM BUT HAS REFUSED TO BE REPOSITIONED, ENCOURAGED TO SLEEP ON THE SIDE MORE OFTEN DUE TO SACRAL WOUND AND SOMETIMES HE DOES. WOUND REMAINS THE SAME PREVIOUSLY CHARTED, CLEANED AND ZGUARD APPLIED. UP WITH 1-2 PERSON ASSIST, PIVOT TRANSFERS. Q1H VISUAL CHECKS. CALL LIGHT WITHIN REACH. FALL PRECAUTIONS IN PLACE
[2018-09-11 20:00] VITALS: BP 122/68
--- NOTE | 2018-09-12 00:17 | NUR ---
PT FRUSTRATED AND IRRITABLE REGARDING TURNING AND REPOSITIONING IN BED. PT INSISTING ON WEARING BRIEF HE STATES HE WILL HAVE AN ACCIDENT IF HE DOESN'T HAVE BRIEF ON. PT ALSO NOT WANTING TO TURN HIMSELF OR BE REPOSITIONED IN BED Q2HRS FOR TURNING.
--- NOTE | 2018-09-12 01:56 | NUR ---
assumed care at approx 1900 evening 09/11. pt lying in bed with head of bed elevated at change of shift. pt with flat affect expressing frustration and irritability regarding turning and repositioning in bed. pt encouraged to try to turn to avoid further breakdown to coccyx area. pt initially insisted on wearing brief but has not agreed to take off. barrier cream applied and trying to assist pt with turning however pt rolls back to his back frequently. pt does appear to be sleeping fairly well. call light in reach and bed alarm on. will continue to monitor.
[2018-09-12 08:00] VITALS: BP 121/60
--- NOTE | 2018-09-12 09:58 | NUR ---
ASSUMED CARES AT 0700. PT AWAKE, ALERT AND ORIENTED *4. MORE PLEASANT TODAY THAN PREVIOUSLY NOTED. VITALS REMAINED STABLE. DENIES PAIN. CONTINUES TO HAVE A SACRAL WOUND, CLEANED AND Z-GUARD APPLIED, PT ENCOURAGED TO REPOSITION SELF Q2H AND SLEEP ON HIS SIDE MORE OFTEN. CONTINUES TO HAVE A SKIN TEAR ON THE RIGHT HAND, DRESSING CHANGED NEEDED. PT UP WITH 1-2 PERSON MIN ASSIST, AMBULATING THE HALLWAY WITH PT (UNSTEADY GAIT). Q1H VISUAL CHECKS. Q2H REMINDERS TO REPOSITION. CALL LIGHT WITHIN REACH. FALL PRECAUTIONS IN PLACE
--- NOTE | 2018-09-12 13:35 | NUR ---
WOUND CONSULT; ASSESSMENT OF THE COCCYX REVEALS A SMALL AREA OF BREAKDOWN, A LINEAR WOUND, NO DRAINAGE, NO S/S OF INFECTION. A RIGHT HAND SKIN TEAR IDENTIFIED, NO S/S OF INFECTION, TYPICAL SKIN TEAR PRESENTATION. RECOMMENDATIONS; 1- W/O #1 RIGHT HAND SKIN TEAR; OPTIFOAM, CHANGE M/W/F PRN 2- COCCYX; BARRIER CREAM DAILY/PRN DISCUSSED WITH RN
[2018-09-12 19:30] VITALS: BP 125/72
--- NOTE | 2018-09-13 00:31 | NUR ---
PT ASSESSMENT COMPLETED AND VSS. MEDS GIVEN ORDERED AND WELL TOLERATED. FALL PRECAUTIONS IN PLACE. VOIDING LARGE AMOUNT OF YELLOW URINE. SLEEPING WELL. WILL CONTINUE TO MONITOR FREQUENTLY.
[2018-09-13 08:27] VITALS: BP 132/72
--- NOTE | 2018-09-13 11:02 | PLAN ---
[facility] [address] REHAB UNIT PLAN OF CARE Name: TSERING GODDARD Room #: 512-P ADM IN M.R.#: [id number] Admission: 08/30/18 ������������������ Attend Phys: Jignesh Hernandez MD Discharge: ������������������ Date of : 52 Report #: [id number] THIS REPORT FOR: //name// CC: Jignesh Voss PROGRESS NOTE AND OVERALL PLAN OF CARE SUBJECTIVE: The patient is seen back today in followup. He is in no distress. Last recorded temperature is 98.3, pulse is 57, respirations 16, and blood pressure is 141/67. He works in therapies. Transfers are max assist. Gait is 10 feet in the parallel bars. Lower body dressing is dependent. He has mild comprehensive deficits, [id number] cognitive deficits. He is on a regular thin diet with speech involved. ASSESSMENT: 1. Mild acute metabolic encephalopathy and chronic encephalomalacia. 2. 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 3. History of multiple prior cerebrovascular accidents. Appreciate Neurology involvement. Baclofen, which may have been contributory has been stopped. 4. Urinary tract infection, on antibiotics. 5. Gait instability with falls. 6. History of traumatic brain injury in 2016. 7. Dysphagia, see above. 8. Vitamin D deficiency. PLAN: The overall plan of care is based on the preadmission screen, post-admission physician evaluation and information garnered from therapy assessments. 1. Estimated length of stay is probably 2-3 weeks pending progress. 2. Medical prognosis is reasonably good. 3. Anticipated interventions includes the interdisciplinary acute inpatient rehabilitation program with goal of maximizing the patient's functional independence, so that he can hopefully return back to his prior living situation. 4. Anticipated functional outcomes would be for the patient to become modified independent with transfers, mobility, ADLs, cognition, and swallowing, so that he can return back to the home setting. 5. Discharge destination would be back home where he lives with his . 6. Expected therapy by discipline includes PT, OT, and speech 1 hour per day each five days a week throughout the duration of the acute inpatient rehabilitation stay. ADDENDUM [address] [address] REHAB UNIT PLAN OF CARE Name: TSERING GODDARD Room #: 512-P [facility] IN .R.#: [id number] Admission: 08/30/18 ������������������ Attend Phys: Jignesh Hernandez MD Discharge: ������������������ Date of : 52 Report #: [id number] On 08/31/2018, the patient did miss some speech therapy. They were trying to work with him on swallowing and refused, not wanting to eat. ��������������������������������������������� <ELECTRONICALLY SIGNED> ���������������������������������������� By: Jignesh Hernandez MD ��������������������������������������������� 09/13/18 1102 [id number] Jignesh Hernandez MD /PMT
--- NOTE | 2018-09-13 12:37 | NUR ---
team meeting, recommendation initial 24 care givers and supervision with medication. home health ( pt, ot, st, [facility], sw), family to get flores cane. coming in around 1000 with physical therapy education.
--- NOTE | 2018-09-13 15:21 | NUR ---
ASSUMED CARE AT SHIFT CHANGE, PT A/O X 4, DELAYED RESPONSE AT TIME. PT WITH FLAT AFFECT MOST OF THE DAY, THOUGH HE DID BEGIN TO MAKE JOKES THIS AFTERNOON. PARTICIPATED WELL WITH THERAPY WITH [facility]. TRANSFERS WITH MIN ASSIST FROM CHAIR TO BED. AMBULATED WITH THERAPY. GIVEN PRN DOCUSATE FOR CONSTIPATION. DENIES ANY PAIN THROUGHOUT THE DAY. VSS. WILL CONT TO MONITOR AND FOLLOW POC.
[2018-09-13 19:15] VITALS: BP 129/73
--- NOTE | 2018-09-14 03:48 | NUR ---
ENCOURAGED TO TURN TO SIDE. VOIDING ASSISTANCE BY HOLDING URINAL IN PLACE. MOISTURE BARRIER TO SACRAL AND MID-BUTTOCK REDDENED AREAS. APPRECIATES NICOTINE PATCH AND MELATONIN
--- NOTE | 2018-09-14 09:06 | NUR ---
PT A&0X4, WHEN ASKED IF HE'D LIKE TO GO TO THE DINING ROOM FOR BFAST, EXCLAIMED NO, I ASSESSED AND BROUGHT TRAY, HE WAS GETTING MORE IMPATIENT? WHEN ASKED IF THERE WAS ANYTHING I COULD DO HE STATED, EMPHATICALLY, THAT JEN GETS HIM READY AND OUT TO THE DINING ROOM. EXPLAINED NURSES ALSO HELP YET ID FIND OUT THERAPIES ETA. SEEMED TO CALM HIM, TEMPORARILY. ENCOURAGED HIM TO USE CALL LIGHT FOR ANY NEEDS. SEE INTERVENTION FOR ASSESSMENT
--- NOTE | 2018-09-14 12:07 | NUR ---
cm set up [facility], spoke with tracy. 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 will cont following as needed for dc needs.
--- NOTE | 2018-09-14 14:33 | NUR ---
Patient participated in community reintegration on 09/14/18 with Physical Therapy. Refer to documentation by PT.
--- NOTE | 2018-09-14 14:54 | NUR ---
I have reviewed the documentation by FRANCY RAMESH from 09/14/18 to 09/14/18 and I concur with it. TITUS WORLEY A
[2018-09-14 19:34] VITALS: BP 135/74
--- NOTE | 2018-09-15 05:11 | NUR ---
TURNING SELF SIDE TO SIDE, INSISTS ON WEARING BRIEF OVERNIGHT, HAS BEEN CONTINENT USING URINAL, UP IN WC TO TRANSFER TO TOILET FOR UNSUCCESSFUL BM ATTEMPT. MOISTURE BARRIER TO REDDENED AREA BETWEEN BUTTOCKS AND SMALL OPEN SORE HIGHER TO COCCYX
[2018-09-15 07:30] VITALS: BP 141/83
[2018-09-15] MEDS ORDERED: VITAMIN B-12500 MCG PO (07:59)
[2018-09-15] MEDS ORDERED: ERGOCALCIF50000 UNIT PO (07:59)
[2018-09-15] MEDS ORDERED: ASPIRIN325 PO (07:59)
[2018-09-15] MEDS ORDERED: MELATONIN5 M1 PO (07:59)
[2018-09-15 08:03] VITALS: BP 135/74
[2018-09-15 10:13] VITALS: BP 135/74
[2018-09-15 10:27] VITALS: BP 135/74
[2018-09-15 10:35] VITALS: BP 135/74
--- NOTE | 2018-09-15 11:17 | NUR ---
ASSUMED CARES AT 0700. PT AWAKE, A/O*4. DENIES PAIN. VITALS REMAINS STABLE. PT C/O CONSTIPATION AND OBSTRUCTION, DIGITAL STIMULATION DONE AND NOT EFFECTIVE. SALINE ENEMA ORDERED AND ADMINISTERED, PT HAD A SMALL BM, SENNA ADMINISTERED WELL. SACRAL WOUND HEALED, SITE CLEANED, PICTURE TAKEN AND ZGUARD APPLIED. SKIN TEAR ON RIGHT HAND, CLEANED AND DRESSING CHANGED. PT TEACHING COMPLETED WITH PT AND SPOUSE. PT UP WITH 1-2 PERSON MIN ASSIST. Q1H VISUAL CHECKS. CALL LIGHT WITHIN REACH. FALL PRECAUTIONS IN PLACE
[2018-09-15] MEDS ORDERED: NICOTINE TRANSD14 M1 TRANSDERM (12:32)
--- NOTE | 2018-09-15 16:18 | NUR ---
PT. DISCHARGING TODAY TO HOME WITH [facility] SPOKE WITH BENSON IN ADM AND SHE RECEIVED DC ORDERS/SUMMARY AND WILL START VISITS TOMORROW AND WILL NOTIFY PT. OF TIME OF VISITS.
--- NOTE | 2018-09-17 15:54 | HC ---
[facility] [place] [address] CONSULTATION Name: TSERING GODDARD Room #: 512-P [facility] IN M.R.#: [id number] Admission: 08/30/18 ������������������ Attend Phys: Jignesh Hernandez MD Discharge: 09/15/18 ������������������ Date of : 52 Report #: [id number] THIS REPORT FOR: //name// CC: Jignesh Hernandez Cosmo Voss DATE OF SERVICE: 09/10/2018 NEUROBEHAVIORAL STATUS EXAM ATTENDING PHYSICIAN: Jignesh Hernandez MD TOW TRUCK OPERATOR: Den Rangel, PhD CLINICAL PRESENTATION: The patient is a 68-year-old male admitted to the rehabilitation unit at [facility] for a comprehensive inpatient rehabilitation program to improve functional mobility, activities of daily living and self-care and mental status secondary to right hemiparesis and late-effect CVA. He was at his home when he had a fall and was unable to stand. His was out of town and his daughter was staying with him. The patient apparently went outside to smoke and fell outdoors. He contacted the daughter who helped him into the house. The patient then fell again upon standing. He was then brought to the hospital for evaluation and treatment. His assessment on the rehabilitation unit included right hemiparesis, late-effect CVA, bilateral cerebrovascular accidents in the past, posterior parietal as well as right frontal, right upper extremity flexion contracture with increased tone, post-traumatic brain injury in 2016, gait instability with recent fall, noted urinary tract infection. A complete description of his medical condition, history and medications can be found in his medical record. Neuropsychological consultation was requested to provide assistance in the assessment of cognitive and emotional status and to provide recommendations and services. Prior to this most recent admission, the patient was living with his in their apartment. As indicated, his daughter was staying with him to help ensure safety. The patient had 2 step-children. One stepchild from brain cancer about 2 years ago. This is his second marriage. He was a high school graduate. 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 Alcohol was described as having been involved in the fall at that time. TECHNIQUES UTILIZED: Clinical interview, review of medical records, staff consultation and behavioral observation, Mini-Mental status exam 2 standard version, verbal fluency assessment. [address] [address] CONSULTATION Name: TSERING GODDARD Room #: [facility] IN .R.#: [id number] Admission: 08/30/18 ������������������ Attend Phys: Jignesh Hernandez MD Discharge: 09/15/18 ������������������ Date of : 52 Report #: [id number] EXAMINATION FINDINGS: The patient was alert and cooperative with the assessment. He accurately described events surrounding his admission. There is no evidence of aphasia. His thoughts are logical and goal oriented. There is no evidence of thought disorder. He does not report auditory or visual hallucinations, depression or problems with memory. He describes his symptoms to include anxiety in regard to his ability to return to his prior level of functioning, word finding deficits and difficulty with sleep. It should be noted that he had a difficult time in recalling recent events and yawned frequently during the assessment. It appeared to take much effort in the description of recent events and his response latency was long. His performance on the MMSE 2 brief version is within normal limits with a raw score 16 of 16. He was 3/3 for initial registration, 5/5 for orientation to time and place and 3/3 for immediate recall of 3 items after a brief time delay and distraction. Performance on the MMSE 2 standard version is within normal limits with a raw score of 28 of 30. He was 4/5 for serial sevens, 2/2 for naming, 1/1 for repetition, 3/3 for auditory comprehension. He could read and follow a single command. The patient has severe upper extremity deficits and was unable to copy a simple geometric design or participate in constructive tasks. Letter fluency was extremely low with a T score of 19 and a percentile rank of less than 1. Category fluency was extremely low with a T score of 21 and percentile rank of less than 1. Overall, total fluency was a T score of 19, which is less than 1% and extremely low. The patient is presenting with severe deficits in executive functioning, which are often associated with impairment in verbal fluency. DIAGNOSTIC IMPRESSION: Major neurocognitive disorder (dementia), likely due to vascular disease and prior traumatic brain injury, with decreased insight -- extent to be determined, likely in the moderate range RECOMMENDATIONS: The patient will require assistance in the management of medication, nutrition and finances. Judgment and insight are likely to be poor and environmental supervision will be necessary to maintain safety. Family education will also be necessary to the extent that his family is informed of the extent of help that he requires to maintain safety. Additionally, the use of tobacco should be discouraged. He reporting smoking 1-1/2 packs of cigarettes daily. His falls that lead to his hospitalization are associated with him going outside to smoke. [facility] [address] [place] [address] CONSULTATION Name: TSERING GODDARD Room #: 512-P DIS IN M.R.#: [id number] Admission: 08/30/18 ������������������ Attend Phys: Jignesh Hernandez MD Discharge: 09/15/18 ������������������ Date of : 52 Report #: [id number] Thank you very much for allowing me to provide the consultation on this patient. ��������������������������������������������� <ELECTRONICALLY SIGNED> ���������������������������������������� By: Den Rangel, PhD ��������������������������������������������� 09/17/18 1554 [id number] [id number] Den Rangel, PhD /nt
== END 2018-09-15 12:47 | disposition home health service (06) | DRG 70 ==
PROVIDERS: Nurse Practitioner; Nurse Practitioner Family; ADMIT Physical Medicine & Rehabilitation
DX: G93.41 Metabolic encephalopathy (principal); I63.9 Cerebral infarction, unspecified; N39.0 Urinary tract infection, site not specified; I69.351 Hemiplegia and hemiparesis following cerebral infarction affecting right dominant side; R13.10 Dysphagia, unspecified; R53.81 Other malaise; F17.210 Nicotine dependence, cigarettes, uncomplicated; D69.6 Thrombocytopenia, unspecified; G93.89 Other specified disorders of brain; R26.9 Unspecified abnormalities of gait and mobility; E55.9 Vitamin D deficiency, unspecified; F01.50 Vascular dementia, unspecified severity, without behavioral disturbance, psychotic disturbance, mood disturbance, and anxiety; B96.1 Klebsiella pneumoniae [K. pneumoniae] as the cause of diseases classified elsewhere; E53.8 Deficiency of other specified B group vitamins; G47.00 Insomnia, unspecified; K21.9 Gastro-esophageal reflux disease without esophagitis; Z71.6 Tobacco abuse counseling; Z91.81 History of falling
CPT/HCPCS: 10112